=== PATIENT | male | born 1950 | race Caucasian/White ===

== ENCOUNTER 2016-12-22 13:33 | Emergency (ER) | payer MEDICARE, OTHER ==
[~2016-12-22] VITALS: Ht 175.3 cm; Wt 116.0 kg
[2016-12-22] MEDS ORDERED: ELIQ2.5T PO (13:59)
[2016-12-22] MEDS ORDERED: METO1TAB7 PO (13:59)
[2016-12-22] MEDS ORDERED: VALT1TAB PO (14:45)
[2016-12-22] MEDS ORDERED: NORCOTAB PO (14:45)
== END 2016-12-22 15:08 | disposition home or self-care (01) ==
LOC: MERGE 13:33 → M ED 13:33
DX: B02.9 Zoster without complications (principal); I48.91 Unspecified atrial fibrillation; I10 Essential (primary) hypertension